=== PATIENT | female | born 1960 | race Caucasian/White ===

== ENCOUNTER 2024-02-01 09:28 | Outpatient (CLI) | payer OTHER, SELFPAY ==
--- OUTSIDE RECORDS SUMMARY | 2024-02-01 09:34 | XMS_ITS | Clinical Summary ---
Author Organization [facility] Address [address] [place] [address] Care Team Providers Care Communications Advisor Name Role Phone Varinder Mercedes MD Primary Care Provider [phone] Source Comments You are receiving this document as you are listed as the primary care provider,follow-up provider, or the patient has been referred to you for consultation.This is in compliance with the Medicare and[facility] EHR Incentive Program,which states Providers who transition their patient to another setting of careor provider of care or refers their patient to another provider of care shouldprovide summary care record for each transition of care or referral. Private Practice Allergies Active Allergy Reactions Criticality Noted Date Comments Erythromycin 01/14/2020 Azathioprine 01/14/2020 Medications Medication Sig Dispensed Refills Start Date End Date Status lisinopril (ZESTRIL) 40 MG tablet Take 1 Tablet (40 mg) by mouth daily. 11/20/2019 Active mupirocin (BACTROBAN) 2 % ointment APPLY TOPICALLY THREE TIMES DAILY NEEDED 11/20/2019 Active piroxicam (FELDENE) 20 MG capsule Take 1 Capsule (20 mg) by mouth daily. 11/21/2019 Active simvastatin (ZOCOR) 40 MG tablet Take 1 Tablet (40 mg) by mouth daily at bedtime. 11/20/2019 Active aspirin EC 81 MG enteric coated tablet Take 1 Tablet (81 mg) by mouth daily. Active inFLIXimab-dyyb (INFLECTRA) injection 600 mg IV every 6 weeks for 1 year 04/29/2021 Active gabapentin (NEURONTIN) 600 MG tablet TAKE ONE TABLET BY MOUTH AT BEDTIME 90 Tablet 3 01/19/2023 Active metFORMIN (GLUCOPHAGE) 1000 MG tabletIndications:U ncontrolled type 2 diabetes mellitus with hyperglycemia (HRC) Take 1.5 tabs AM, and 1 tab PM 360 Tablet 3 03/21/2023 Active insulin glargine (BASAGLAR KWIKPEN) injection 100 unit/mlIndications: Uncontrolled type 2 diabetes mellitus with hyperglycemia (HRC) Inject 50 Units subcutaneously every evening. 45 mL 3 03/21/2023 Active dulaglutide (TRULICITY) 3 MG/0.5ML injectin penIndications:Unco ntrolled type 2 diabetes mellitus with hyperglycemia (HRC) Inject 3 mg subcutaneously once a week. 6 mL 3 03/21/2023 4 Active insulin pen needle (B-D UF III MINI PEN NEEDLES) 31G X 5 MMIndications:Uncon trolled type 2 diabetes mellitus with hyperglycemia (HRC) USE 1 NEEDLE TWICE A DAY WITH PEN INJECTOR DEVICE. EACH NEEDLE IS SINGLE USE ONLY 200 Each 2 08/31/2023 Active hydroCHLOROthiazide (ORETIC) 25 MG tablet Take 1 Tablet (25 mg) by mouth daily. 07/29/2023 Active tirzepatide (MOUNJARO) 7.5 MG/0.5ML injection penIndications:Unco ntrolled type 2 diabetes mellitus with hyperglycemia (HRC) Inject 7.5 mg subcutaneously once a week. 2 mL 11 09/26/2023 Active Continuous Glucose Sensor (FREESTYLE ANDIE 3 SENSOR)Indications: Uncontrolled type 2 diabetes mellitus with hyperglycemia (HRC) Use 1 sensor every 14 days 7 Each 3 09/26/2023 Active Active Problems Problem Noted Date Diagnosed Date Obesity, unspecified obesity severity, unspecified obesity type 10/13/2020 Uncontrolled type 2 diabetes mellitus with hyper glycemia 10/13/2020 Resolved Problems Problem Noted Date Diagnosed Date Resolved Date Type 2 diabetes mellitus wit h diabetic chronic kidney disease 09/26/2023 Overview (09/26/2023): This problem was marked as resolved by a user in a SmartForm. Encounters Date Type Department Care Team Description 11/10/2023 1:30 PM CDT E-Visit [facility] [address] [place] [address] Ted Cerda MD Dx: Uncontrolled type 2 diabetes mellitus with hyperglycemia (HRC) (Primary Dx) from Last 3 Months Family History Medical History Relation Name Comments Diabetes Father Kidney Disorder Father Diabetes Mother Diabetes Maternal Grandfather Diabetes Paternal Grandmother Relation Name Status Comments Father Mother Maternal Grandfather Paternal Grandmother Social History Tobacco Use Types Packs/Day Years Used Date Smoking Tobacco: Former Cigarettes Q uit: 2014 Smokeless Tobacco: Never Alcohol Use Standard Drinks/Week Comments Not Currently 0 (1 standard drink = 0.6 oz pur e alcohol) Sex and Gender Information Value Date Recorded Sex Assigned at Not on file Gender Identity Not on file Sexual Orientation Not on file Last Filed Vital Signs Vital Sign Reading Time Taken Comments Blood Pressure 127/63 09/26/2023 1:56 PM CDT Pulse 82 09/26/2023 1:56 PM CDT Temperature - - Respiratory Rate - - Oxygen Saturation - - Inhaled Oxygen Concentration - - Weight 102.7 kg (226 lb 8 oz) 09/26/2023 1:56 PM CDT Height 180.3 cm (5' 11) 09/26/2023 1:56 PM CDT Body Mass Index 31.59 09/26/2023 1:56 PM CDT Plan of Treatment Upcoming Encounters Date Type Department Care Team (Late st Contact Info) Description 04/02/2024 10:45 AM OPTICAL MANAGER Appointment [facility] [address] [place] [address] Ted Cerda MD [address] [place] [phone] Health Maintenance Due Date Last Done Comments Cervical Cancer Screening Due 1961 Colon Cancer Screening Plan Due 1961 Diabetes: Eye Exam 1961 Diabetes: Foot Exam 1961 Hep C Screening (Preventive Services) 1961 MTM Targeted 1961 Mammogram 1961 HIV Screening (Preventive Services) 1977 Adult Preventive Visit 10/06/1979 Pneumococcal (2 - PCV) 04/28/2011 04/28/2010, 1999 COVID-19 Vaccine ( season) 2023 02/01/2023, 02/03/2022, 02/06/2021, Additional history exists Influenza (#1) 2023 02/01/2023, 01/23, 02/06/2021, Additional history exists Diabetes: HGBA1C 12/27/2023 09/26/2023, , 06/21/2022, Additional history exists Diabetes: Urine Microalbumin 03/21/2024 03/21/2023, 12/07/2021, 04/14/2020 Diabetes: Creatinine 09/25/2024 09/26/2023, 03/21/2023, 06/21/2022, Additional history exists DTaP/Tdap/Td (3 - Tdap) 10/12/2025 10/13/2015, 09/23 Diabetes: Lipid Panel 03/21/2028 03/21/2023 , 06/21/2022, 06/21/2022, Additional history exists RSV (1 - 1-dose 75+ series) 2036 Zoster/Shingles Completed 04/09/2020, 01/23, 10/06/2011 Cholesterol Discontinued 06/21/2022 HepA Aged Out No longer eligi ble based on patient's age to complete this topic HepB Aged Out No longer eligi ble based on patient's age to complete this topic Hib Aged Out No longer eligi ble based on patient's age to complete this topic IPV (Polio) Aged Out No longer eligi ble based on patient's age to complete this topic RSV Aged Out No longer eligi ble based on patient's age to complete this topic MCV4 Aged Out No longer eligi ble based on patient's age to complete this topic Procedures Procedure Name Priority Date/Time Associated Diagnosis Comments BASIC METABOLIC PANEL Routine 09/26/2023 2:29 PM CDT Uncontrolled type 2 diabetes mellitus with hyperglycemia (HRC) HGB A1C Routine 09/26/2023 1:39 PM CDT Uncontrolled type 2 diabetes mellitus with hyperglycemia (HRC) ALBUMIN/CREAT RATIO Routine 03/21/2023 2:48 PM OPTICAL MANAGER Uncontrolled type 2 diabetes mellitus with hyperglycemia (HRC) LDL CHOLESTEROL, DIRECT MEASURED Routine 03/21/2023 2:48 PM OPTICAL MANAGER Uncontrolled type 2 diabetes mellitus with hyperglycemia (HRC) LIPID PANEL & DIRECT LDL (IF NEEDED) Routine 06/21/2022 10:34 AM OPTICAL MANAGER Uncontrolled type 2 diabetes mellitus with hyperglycemia (HRC) from Last 3 Months or Most Recently Relevant to Health Maintenance Results * (ABNORMAL) BMP (09/26/2023 2:29 PM CDT) Sodium 140 136 - 145 mmol/L 09/26/2023 6:16 PM [facility] Potassium 4.6 3.5 - 5.1 mmol/L 09/26/2023 6:16 PM [facility] Chloride 105 98 - 109 mmol/L 09/26/2023 6:16 PM [facility] CO2 24 20 - 29 mmol/L 09/26/2023 6:16 PM [facility] Anion Gap 11 6 - 16 mmol/L 09/26/2023 6:16 PM [facility] Calcium 9.8 8.4 - 10.4 mg/dL 09/26/2023 6:16 PM [facility] BUN 19 7 - 26 mg/dL 09/26/2023 6:16 PM [facility] Creatinine 1.26(H) 0.55 - 1.02 mg/dL 09/26/2023 6:16 PM [facility] Glucose 147(H) 70 - 100 mg/dL 09/26/2023 6:16 PM [facility] Comment:The given reference range is for the fasting state. Non-fasting reference range for glucose is 70 - 180 mg/dL. GFR, Estimated 49(L) >60 mL/min/1.7 3m2 09/26/2023 6:16 PM [facility] Hours Fasting 12.0 8 - 12 Hours 09/26/2023 6:16 PM [facility] Blood Venipuncture / Unknown 09/26/2023 2:29 PM CDT 09/26/2023 2:34 PM CDT [facility] - 09/26/2023 6:16 PM CDT The National Kidney Disease Education Program suggests measuring Cystatin C in patients with eGFRcrea of 45 to 59 ml/min/1.73^2 who do not have other markers of kidney damage (i.e. elevated urine Albumin/Creatinine Ratio or a prior Cystatin C confirming the presence of chronic kidney disease). Ted Cerda MD LAB_1 Performing Organization Address [facility] Co de Phone Number [facility] [address] [place] [address] * (ABNORMAL) HgbA1c - Collect in Clinic (09/26/2023 1:39 PM CDT) [facility] Hemoglobin A1C (Rapid) 8.2(H) <=5.6 % 09/26/2023 1:58 PM CDT [facility] Performing Location Endo [facility] 09/26/2023 1:58 PM CDT [facility] Estimated Average Glucose (Calc) 189 < 117 mg/dL 09/26/2023 1:58 PM T [facility] Comment:Estimated average gl ucose (eAG) converts A1c into glucose units (mg/dL) and estimates average glucose over the past approximately 3 months. The eAG reference interval (<117 mg/dL) corresponds to an A1c of <5.7%. Blood Capillary / Unknown 09/26/2023 1:39 PM CDT 09/26/2023 1:40 PM CDT [facility] - 09/26/2023 1:58 PM CDT For patients not previously diagnosed with diabetes: 5.7-6.4%: Increased risk for diabetes 6.5% and greater: Diagnostic for diabetes For patients diagnosed with diabetes: <8.0%: Goal of therapy for ages 18-75 Clinicians may recommend a higher or lower goal for specific individuals. The test method used for this Hemoglobin A1c result can experience interference from elevated hemoglobin and other hemoglobin variants. In patients with results that do not correlate clinically, contact the lab for further direction. Ted Cerda MD LAB_1 Performing Organization Address [facility]/ZIP Co de Phone Number [facility] [address] [place] [address] * LDL Cholesterol, Direct Measured (03/21/2023 2:48 PM OPTICAL MANAGER) LDL, Direct 95 <=130 mg/dL 03/21/2023 5:20 PM [facility] Blood Venipuncture / Unknown 03/21/2023 2:48 PM OPTICAL MANAGER 03/21/2023 3:05 PM OPTICAL MANAGER Ted Cerda MD LAB_1 Performing Organization Address [facility] Co de Phone Number [facility] [address] [place] [address], [facility] [phone] * (ABNORMAL) Albumin/Creatinine Ratio,Random Urine (03/21/2023 2:48 PM OPTICAL MANAGER) Albumin/Creati nine Ratio, Urine, Random 100(H) <30 mg/g 03/21/2023 5:27 PM [facility] Albumin, Urine, Random 298.3 mg/L 03/21/2023 5:27 PM [facility] Creatinine, Urine, Random 297 >20 mg/dL mg/dL 03/21/2023 5:27 PM [facility] Urine Non-blood Collection / Unknown 03/21/2023 2:48 PM OPTICAL MANAGER 03/21/2023 3:05 PM OPTICAL MANAGER Ted Cerda MD LAB_1 Performing Organization Address [facility]/ZIP Co de Phone Number [facility] [address] [place] [address], [facility] [phone] * (ABNORMAL) Lipid Panel and Direct LDL (if needed) (06/21/2022 10:34 AM OPTICAL MANAGER) Cholesterol 157 0 - 199 mg/dL 06/21/2022 5:17 PM [facility] Triglyceride 152(H) <=149 mg/dL 06/21/2022 5:17 PM [facility] HDL Cholesterol 49 >=40 mg/dL 3 5:17 PM [facility] LDL, Calculated 78 <130 mg/dL 3 5:17 PM [facility] Non HDL Chol, Calculated 108 <=159 mg/dL 06/21/2022 5:17 PM [facility] Cholesterol/HDL Ratio 3.2 06/21/2022 5:17 PM [facility] Blood Venipuncture / Unknown 06/21/2022 10:34 AM OPTICAL MANAGER 06/21/2022 10:34 AM [facility] Ted Cerda MD LAB_1 [facility] [address] [place] [address], [facility] [phone] from Last 3 Months or Most Recently Relevant to Health Maintenance Care Teams Communications Advisor Relationship Specialty Start Date End Date Varinder Mercedes MD [address] [place] [address] PCP - General 09/26/23
--- OUTSIDE RECORDS SUMMARY | 2024-02-01 09:34 | XMS_ITS | Clinical Summary ---
Author Organization [employer] [facility] Address [place], [place] [address] Care Team Providers Care Physical Therapist Technician Name Role Phone Varinder Mercedes MD Primary Care Provider Allergies Active Allergy Reactions Criticality Noted Date Comments Amoxicillin-Pot Clavulanate Other - Describe In Comment Field 07/30/2006 intolerance--GI upset Erythromycin Other - Describe In Comment Field 07/30/2006 intolerance--GI upset Nitroimidazoles Other - Describe In Comment Field 07/30/2006 neuropathy Azathioprine Rash 07/30/2006 Sulindac Other - Describe In Comment Field 07/30/2006 intolerance--GI upset Medications Medication Sig Dispensed Refills Start Date End Date Status ASPIRIN 81 MG TAB take 1 tablet (81mg) by oral route once daily 0 Active PIROXICAM 20 MG CAP take 1 capsule (20 mg) by oral route once daily*NEEDS APPOINTMENT 15 0 01/08/2008 Active SIMVASTATIN 40 MG TAB take 1 tablet (40 mg) by oral route once daily in the evening 15 0- needs appt 01/08/2008 Active METFORMIN 1,000 MG TAB take 1 tablet (1,000mg) by oral route 2 times per day with morning and evening meals 30 0- needs appt 01/08/2008 Active lisinopril (PRINIVIL; ZESTRIL) 10 mg tabletIndications :Unspecified essential hypertension Take 2 tablets by mouth once daily. 31 tablet 11 05/31/2013 Active naproxen sodium (ALEVE) 220 mg cap Take 220 mg by mouth before breakfast. 0 05/31/2013 Active dulaglutide (TRULICITY) 0.75 mg/0.5 mL injection Inject 0.75 mg subcutaneous once weekly. 0 05/08/2020 Active Basaglar KwikPen U-100 Insulin 100 unit/mL (3 mL) pen INJECT 45 UNITS SUBCUTANEOUSLY EVERY EVENING. 06/23/2021 Active Trulicity 3 mg/0.5 mL subcutaneous pen INJECT 3 MG SUBCUTANEOUSLY ONCE A WEEK* 10/14/2022 Active hydroCHLOROthiazi de 12.5 mg tablet TAKE ONE TABLET BY MOUTH ONE TIME DAILY* 10/14/2022 Active hyoscyamine sublingual (LEVSIN SL) 0.125 mg sublIndications:C rohn's disease of both small and large intestine without complication (HC),Diarrhea, unspecified type,Periumbilica l abdominal pain Place 1-2 Tablets (0.125-0.25 mg) under the tongue every 4 hours if needed for Colic. 60 Tablet 11 11/10/2022 Active Additional Information Patient not taking.Reported on 11/16/2023 inFLIXimab-dyyb (Inflectra) 100 mg injectionIndicati ons:Crohn's disease of both small and large intestine without complication (HC) 600 mg IV every 6 weeks 60 mL 9 11/19/2022 Active gabapentin (NEURONTIN) 600 mg tablet 600 mg. Active tirzepatide (Mounjaro) 7.5 mg/0.5 mL pen Inject 7.5 mg subcutaneous. 09/26/2023 Active Active Problems Problem Noted Date Diagnosed Date Family history of malignant neoplasm of gastrointestinal tract 01/05/2012 Arthralgia 05/25/2010 Diarrhea 05/25/2010 Mixed hyperlipidemia 10/19/2006 Crohn's disease of both smal l and large intestine without complication 10/19/2006 Overview (10/11/2017): Colonoscopy 05/2012 two small areas of inflammation, repeat in 5 years Colonoscopy 09/2017 normal, repeat in 3 years Unspecified essential hypertension 10/19/2006 DIABETES 03/21/2002 Encounters Date Type Department Care Team Description 01/13/2024 11:00 AM CDT Orders Only [facility] [address] [place] [address] [place], [place] [facility] 01/13/2024 Travel 12/12/2023 Medical Messaging [facility] [address] [place] [address] Rayshawn Parish MD schedule the next appointments 11/23/2023 9:00 AM CDT Orders Only [facility] [address] [place] [address] Lab, [place] [facility] 11/23/2023 Telephone [facility] [address] [place] [address] Rayshawn Parish MD Questions (frustration) 11/23/2023 Travel 11/16/2023 1:30 PM CDT Office Visit [facility] [address] [place] [address] [address] Rayshawn Parish MD Follow Up (Inflectra-some good days and some not so good - same concerns since switching from Remicade to Inflectra) 11/16/2023 Travel from Last 3 Months Immunizations Name Administration Dates Next Due AMB Influenza, IIV3 (Age >=3 years)(Flu Clinic O nly) 02/24/2010 AMB Influenza, IIV4 PF (=>6 mos Flulaval,Fluzone Fluarix)(Flu Clinic Only) 02/05/2014 Influenza, IIV3 (Age >=3 years) 02/21/2007,02/25 Pneumococcal Poly,23-Valent (Pneumovax) 04/25/19 00 Tdap 09/23/2005 Family History Medical History Relation Name Comments Diabetes Father Hyperlipidemia Father Hypertension Father Cancer Maternal Grandfather lung Diabetes Mother Heart Disease Mother HI at age 55 Relation Name Status Comments Father Maternal Grandfather Mother Social History Tobacco Use Types Packs/Day Years Used Date Smoking Tobacco: Former Cigarettes Q uit: 06/08/2013 Smokeless Tobacco: Never Tobacco Cessation:Counseling Given: No Comments:has plan to try to quit Alcohol Use Standard Drinks/Week Comments Yes 1.7 (1 standard drink = 0.6 oz p ure alcohol) Social Connections Answer Date Recorded Frequency of Communication with Friends and Fami ly Not on file 04/15/2021 Financial Resource Strain Answer Date R ecorded Difficulty of Paying Living Expenses Not on file 04/15/2021 Difficulty of Paying Living Expenses Not on file 04/15/2021 Sex and Gender Information Value Date Recorded Sex Assigned at Not on file Gender Identity Not on file Sexual Orientation Not on file Obstetrics History Last Filed Vital Signs Vital Sign Reading Time Taken Comments Blood Pressure 169/77 11/16/2023 1:39 PM CDT Pulse 81 11/16/2023 1:39 PM CDT Temperature 37 ??C (98.6 ??F) 06/09/2016 3:18 PM DIRECTOR CHEMISTRY Respiratory Rate - - Oxygen Saturation 97% 11/16/2023 1:39 PM CDT Inhaled Oxygen Concentration - - Weight 98.5 kg (217 lb 3.2 oz) 11/16/2023 1:39 P M CDT Height 188 cm (6' 2.02) 05/11/2017 2:05 PM DIRECTOR CHEMISTRY Body Mass Index 27.87 05/11/2017 2:05 PM DIRECTOR CHEMISTRY Plan of Treatment Health Maintenance Due Date Last Done Comments Depression screening for age 12+ 1973 HIV for age 15-65 1976 Hepatitis C screening for ag e 18-79 10/06/1979 Zoster (shingles) series for age 50+ (1 of 2) 1980 Pneumococcal series for age 6-64 (2 of 2 - PCV) 04/25/2000 04/25/1999 Mammogram for age 45-75 2006 Pap test for age 21-65 11/18/2009 7, 11/18/2006, 05/08/2004 Lipids for age 45-75 02/22/2012 02/21/2007, 11/11/2006, 02/25/2006, Additional history exists Tetanus booster 09/24/2015 09/23/2005 BMI (ht and wt on same day) for age 18+ 05/11/2018 05/11/2017, 06/09/2016 Colonoscopy through age 75 10/07/202210/07, 10/07/2017, 06/02/2012, Additional history exists COVID-19 vaccine series ( season) 2023 02/01/2023, 02/03/2022, 02/06/2021, Additional history exists Influenza for age 50-64 12/25/2023 02/06/20 14, 02/24/2010, 02/21/2007, Additional history exists Tdap Completed 09/23/2005 Procedures Procedure Name Priority Date/Time Associated Diagnosis Comments CREATININE Routine 01/13/2024 11:02 AM CDT Crohn's disease of both small and large intestine without complication (HC) Periumbilical abdominal pain Diarrhea, unspecified type SERIAL MONITORING Routine 11/23/2023 9:0 1 AM CDT Crohn's disease of both small and large intestine without complication (HC) Diarrhea, unspecified type Periumbilical abdominal pain CBC WITH AUTO DIFFERENTIAL Routine 11/23/2023 9:01 AM CDT Crohn's disease of both small and large intestine without complication (HC) Diarrhea, unspecified type Periumbilical abdominal pain INFLIXIMAB AND ANTI-INFLIXIMAB GLENNA BLD Routine 11/23/2023 9:01 AM CDT Crohn's disease of both small and large intestine without complication (HC) Diarrhea, unspecified type Periumbilical abdominal pain C-REACTIVE PROTEIN Routine 11/23/2023 9: 01 AM CDT Crohn's disease of both small and large intestine without complication (HC) Diarrhea, unspecified type Periumbilical abdominal pain COMP METABOLIC PANEL Routine 11/23/2023 9:01 AM CDT Crohn's disease of both small and large intestine without complication (HC) Diarrhea, unspecified type Periumbilical abdominal pain CBC WITH AUTO DIFFERENTIAL Routine 11/23/2023 9:01 AM CDT Crohn's disease of both small and large intestine without complication (HC) Diarrhea, unspecified type Periumbilical abdominal pain COLONOSCOPY 10/07/2017 7:51 AM CDT LIPID PANEL Routine 02/21/2007 8:46 AM CDT Hyperlipidemia Mixed [facility] [employer] [facility] [facility] THIN PREP PAP SCREEN IMAGED Routine 11/18/2006 3:59 PM CDT Screening Malignant Neoplasms Cervix from Last 3 Months or Most Recently Relevant to Health Maintenance Results * (ABNORMAL) CREATININE (01/13/2024 11:02 AM CDT) CREATININE 1.56(H) 0.50 - 1.05 mg/dL [facility] EGFR 37(L) > OR = 60 mL/min/1.73 m2 [facility] Blood BLOOD SPECIMEN / Unknown 01/13/2024 11:02 AM CDT 01/13/2024 11:02 AM CDT Rayshawn Parish MD CHEMISTRY Performing Organization Address City/[facility]/ZIP Co de Phone Number [facility] [address] [place] [address], [facility] [address] [place] [address] * SERIAL MONITORING (11/23/2023 9:01 AM CDT) Blood BLOOD SPECIMEN / Unknown Venipuncture / Unknown 11/23/2023 9:01 AM CDT 11/23/2023 9:02 AM CDT Narrative [facility] ([facility]) - 12/01/2023 4:08 AM CDT Performed at: ??[address] [place] [address] ??[id number] In File Operator: Dino Perrin [facility], Phone: ??[phone] Rayshawn Parish MD SEND OUTS Performing Organization Address City/[facility]/ZIP Co de Phone Number [facility] ([facility]) [address] [place] [address] * INFLIXIMAB AND ANTI-INFLIXIMAB GLENNA BLD (11/23/2023 9:01 AM CDT) Infliximab Lvl 11 ug/mL 12/01/2023 4:[address] [facility] ([facility]) Comment: Quantitation Limit: <0.4 ug/mL Results of 0.4 or higher indicate detection of infliximab. Comments: ? - The optimal drug concentration depends upon ? patient-specific factors including the disease and ? desired therapeutic endpoint. ? - Maintenance trough concentrations >=5 may be ? associated with higher remission rates.(1) ? - In severe CD, higher trough levels (>10) may ? be necessary to achieve fistula healing.(2) ? - In rheumatoid arthritis, EULAR responders had higher ? median trough levels (3.6) than non-responders ? (0.5).(3) ? - This assay measures the antibody-unbound (free) ? fraction of infliximab when serum anti-infliximab ? antibodies are present. Infliximab Ab <22 ng/mL 12/01/2023 4:08 AM CDT [facility] ([facility]) Comment: ?Interpretation: ?The above result is an UNDETECTED Antibody titer. ?Quantitation Limit: <22 ng/mL. ?Results of 22 or higher indicate detection of anti- ?infliximab antibodies. ?22 - 200 ng/mL: LOW titer ?201 - 1,000 ng/mL: INTERMEDIATE titer ?1,001 or greater ng/mL: HIGH titer Comments: ? - Anti-drug antibody levels should be interpreted in ? the context of the concomitant free drug trough ? concentration. ? - Low titer anti-drug antibodies may be transient ? while high titers are likely to be more ? consequential.(4-6) ? - Some immunogenicity is reversible. Elimination of ? intermediate titer (and even some high titer) ? anti-infliximab antibodies has been achieved with ? dose escalation and/or methotrexate or 6-MP.(7) ? - Maintenance of drug levels greater than 3 ug/mL may ? reduce the risk of developing anti-drug ? antibodies.(8) ? - This anti-infliximab antibody assay is drug tolerant, ? and all positive results are verified for anti-drug ? specificity by a confirmatory test. References: 1. Andrews Moreno, et al. AGA Review on TDM in IBD. ?? Gastroenterol 2017;153:835-857. 2. Stella A, et al. Gastroenterol 2016;150(4):R595-L819. 3. Wolbink GJ, et al. Radha Rheum Dis 2005;64:704-707. 4. Devaughn Rabago, et al. Inflamm Bowel Dis 2012;18(12): ?? 0830-5176. 5. Andrews Moreno, et al. Am J Gastroenterol 2013;108: ?? 962-971. 6. Yanai H, et al. Clin Gastroenterol Hepatol 2015;13(3): ?? 522-530. 7. Davina A, et al. Gastroenterol 2019;156(6):S-617. 8. Cheikh JF, et al. Gastroenterol 2016;150(4):S144. 9. Mann Bocanegra, et al. AAPS Journal 2016 DOI:10.1208/ ?? [id number]. These tests were developed and their performance characteristics determined by [facility]. ??They have not been cleared or approved by the Food and Drug Administration. However, these electrochemiluminescence immunoassay (ECLIA) measurements of infliximab and anti-infliximab antibody (constituting DoseASSURE IFX) have been developed and validated in accordance with CLIA (Clinical Laboratory Improvement Amendments) and the FDA Guidance document, Assay Development and Validation for Immunogenicity Testing of Therapeutic Protein Products (2019). Results of a peer-reviewed methods comparison / validation of these assays have been published.(9) Blood BLOOD SPECIMEN / Unknown Venipuncture / Unknown 11/23/2023 9:01 AM CDT 11/23/2023 9:02 AM CDT Narrative [facility] ([facility]) - 12/01/2023 4:08 AM CDT Performed at: ??01 - [employer] [address] [place] [address] ??[id number] In File Operator: Benny Vargas MD, Phone: ??[phone] Rayshawn Parish MD SEND OUTS [facility] ([facility]) [address] [place] [address], * (ABNORMAL) CBC WITH AUTO DIFFERENTIAL (11/23/2023 9:01 AM CDT) WHITE BLOOD COUNT 10.7 4.5 - 11.0 thou/cu mm 11/23/2023 9:06 AM CDT [facility] RED BLOOD COUNT 4.16 4.00 - 5.20 mil/cu mm 11/23/2023 9:06 AM CDT [facility] HEMOGLOBIN 11.6(L) 12.0 - 16.0 g/dL 11/23/2023 9:06 AM CDT [facility] HEMATOCRIT 33.9 33.0 - 51.0 % 11/23/2023 9:06 AM CDT [facility] MCV 82 80 - 100 fL 11/23/2023 9:06 AM CDT [facility] MCH 27.9 26.0 - 34.0 pg 11/23/2023 9:06 AM CDT [facility] MCHC 34.2 32.0 - 36.0 g/dL 11/23/2023 9:06 AM CDT [facility] RDW 13.5 11.5 - 15.5 % 11/23/2023 9:06 AM CDT [facility] PLATELET COUNT 209 140 - 440 thou/cu mm 11/23/2023 9:06 AM CDT [facility] MPV 10.9 6.5 - 11.0 fL 11/23/2023 9:06 AM CDT [facility] % NEUT 44.0 % 11/23/2023 9:06 AM CDT [facility] % LYMPH 43.8 % 11/23/2023 9:06 AM CDT [facility] % MONO 10.1 % 11/23/2023 9:06 AM CDT [facility] % EOS 1.7 % 11/23/2023 9:06 AM CDT [facility] % BASO 0.4 % 11/23/2023 9:06 AM CDT [facility] ABSOLUTE NEUTROPHILS 4.7 1.7 - 7.0 thou/cu mm 11/23/2023 9:06 AM CDT [facility] ABSOLUTE LYMPHOCYTES 4.7(H) 0.9 - 2.9 thou/cu mm 11/23/2023 9:06 AM CDT [facility] ABSOLUTE MONOCYTES 1.1(H) <0.9 thou/cu mm 11/23/2023 9:06 AM CDT [facility] ABSOLUTE EOSINOPHILS 0.2 <0.5 thou/cu mm 11/23/2023 9:06 AM CDT [facility] ABSOLUTE BASOPHILS 0.0 <0.3 thou/cu mm 11/23/2023 9:06 AM CDT [facility] Blood BLOOD SPECIMEN / Unknown Venipuncture / Unknown 11/23/2023 9:01 AM CDT 11/23/2023 9:02 AM CDT Rayshawn Parish MD HEMATOLOGY [facility] [address] [place] [address], [place] [phone] * C-REACTIVE PROTEIN (11/23/2023 9:01 AM CDT) C-REACTIVE PROTEIN <0.3 <0.5 mg/dL 11/23/2023 6:42 PM CDT [facility] Blood BLOOD SPECIMEN / Unknown Venipuncture / Unknown 11/23/2023 9:01 AM CDT 11/23/2023 9:02 AM CDT Rasyhawn Parish MD [facility]STRY [facility] [address] [place] [address], [place] * (ABNORMAL) COMP METABOLIC PANEL (11/23/2023 9:01 AM CDT) SODIUM 130(L) 136 - 145 mmol/L 11/23/2023 6:40 PM CDT [facility] POTASSIUM 5.1 3.5 - 5.1 mmol/L 11/23/2023 6:40 PM T [facility] CHLORIDE 94(L) 98 - 107 mmol/L 11/23/2023 6:40 PM T [facility] CO2,TOTAL 21(L) 22 - 29 mmol/L 11/23/2023 6:40 PM T [facility] ANION GAP 15 5 - 18 11/23/2023 6:40 PM T [facility] GLUCOSE 94 70 - 99 mg/dL 11/23/2023 6:40 PM T [facility] CALCIUM 9.6 8.8 - 10.2 mg/dL 11/23/2023 6:40 PM [facility] BUN 22 8 - 23 mg/dL 11/23/2023 6:40 PM [facility] CREATININE 1.55(H) 0.50 - 0.90 mg/dL 11/23/2023 6:40 PM [facility] BUN/CREAT RATIO 14 10 - 20 6:40 PM [facility] eGFR 38(L) >90 mL/min/1.7 3m2 11/23/2023 6:40 PM T [facility] Comment:As of 2021, eG FR is calculated by the CKD-EPI creatinine equation without race adjustment. ??eGFR can be influenced by muscle mass, exercise, and diet. ??The reported eGFR is an estimation only and is only applicable if the renal function is stable. ALBUMIN 4.3 4.0 - 4.9 g/dL 11/23/2023 6:40 PM CDT [facility] PROTEIN,TOTAL 7.6 6.0 - 8.0 g/dL 11/23/2023 6:40 PM T [facility] BILIRUBIN,TOTAL 0.7 0.0 - 1.2 mg/dL 11/23/2023 6:40 PM CDT [facility] ALK PHOSPHATASE 39 35 - 104 IU/L 11/23/2023 6:40 PM CDT [facility] ALT (SGPT) 26 10 - 35 IU/L 11/23/2023 6:40 PM CDT [facility] AST (SGOT) 43(H) 10 - 35 IU/L 11/23/2023 6:40 PM CDT [facility] Blood BLOOD SPECIMEN / Unknown Venipuncture / Unknown 11/23/2023 9:01 AM CDT 11/23/2023 9:02 AM CDT Rayshawn Parish MD CHEMISTRY [facility] [address] [place] [address], [place] * COLONOSCOPY (10/07/2017 7:51 AM CDT) 10/07/2017 7:51 AM CDT Narrative Transcriptions Rayshawn Parish MD - 10/07/2017 9:25 AM CDT Patient Name: Nayana Thapaelgren Procedure Date: 10/07/2017 Gender: Female Date of : 1960 Admit Type: Outpatient Procedure: Colonoscopy Proceduralist: Rayshawn Parish MD , Terri Cabrera (Nurse) Indications/Pre-Op Diagnosis: High risk colon cancer surveillance: Crohn's small and large intestine, Last colonoscopy: May 2012 Medications: Fentanyl 100 micrograms IV, Midazolam 4 mgIV, The level of sedation administered wasmoderate Procedure Description: The patient had risks, benefits and alternatives explained to andgave informed consent. The patient had a stable cardiopulmonary status and judged an adequate candidate for conscious sedation. The colonoscope was passed through the anus and advanced to 15 cminto the ileum. The colonoscopy was performed without difficulty. Thepatient tolerated the procedure well. The quality of the bowel preparationwas good. The terminal ileum, ileocecal valve, appendiceal orifice, and rectum were photographed. Complications: No immediate complications. Estimated Blood Loss & Specimen: Estimated blood loss: none. Specimen collected - Yes and sent to Laboratory Findings: The perianal and digital rectal examinations were normal. The terminal ileum appeared normal. The entire examined colon appeared normal on direct and retroflexion views. Background biopsies were taken for histology with a cold forceps from the ascending colon, transverse colon, descending colon andrectosigmoid colon. These biopsy specimens from the ascending colon, transverse colon, descending colon and rectosigmoid colon were sent toPathology. Impressions/Post-Op Diagnosis: - The examined portion of the ileum was normal. - The entire examined colon is normal on direct and retroflexionviews. - Background biopsies were taken from the ascending colon, transverse colon, descending colon and rectosigmoid colon. Recommendation: - Patient has a contact number available for emergencies. The signsand symptoms of potential delayed complications were discussed with the patient. Return to normal activities tomorrow. Written discharge instructions were provided to the patient. - Resume previous diet. - Continue present medications. - Await pathology results. - Repeat colonoscopy in 3 years for surveillance. Moderate Sedation: Moderate (conscious) sedation was administered by the endoscopy nurse and supervised by the endoscopist. The following parameters were monitored: oxygen saturation, heart rate, respiratory rate, blood pressure, adequacy of pulmonary ventilation and reponse to care. [facility] flow[facility] and nursing notes for moderate sedation details. Total physician intraservice time was 25 minutes. Rayshawn Parish MD 10/07/2017 9:25:26 AM This report has been signed electronically. Note Initiated On: 10/07/2017 7:51 AM Procedure Code(s): --- Professional --- 67503, Colonoscopy, flexible; with biopsy, single or multiple Diagnosis Code(s): --- Professional --- K50.80, Crohn's disease of both small andlarge intestine without complications CPT copyright 2017 [employer]. All rights reserved. The codes documented in this report are preliminary and upon engineer specialist reviewmay be revised to meet current compliance requirements. Scope In: 8:50:22 AM Scope Withdrawal Time 0 hours 17 minutes 7 seconds Scope Out: 9:12:05 AM Rayshawn Parish MD PROCEDURE ORD * (ABNORMAL) LIPID PANEL (02/21/2007 8:46 AM CDT) CHOLESTEROL,TOTAL 140 110 - 199 mg/dL [facility] TRIGLYCERIDES 167(H) <150 mg/dL [facility] HDL CHOLESTEROL 40(L) >40 mg/dL [facility] CHOL/HDL RATIO 3.50 <4.51 [facility] LDL CHOLESTEROL 67 <131 mg/dL [facility] PATIENT STATUS Fasting [facility] Blood specimen (specimen) BLOOD SPECIMEN / Unknown 02/21/2007 8:46 AM CDT 02/21/2007 8:40 AM CDT Omi Meléndez MD CHEMISTRY Performing Organization Address City/State/[facility] Co de Phone Number [facility] [address] [place] [address] * [facility] THIN PREP PAP SCREEN IMAGED (11/18/2006 3:59 PM CDT) CYTOLOGY ??CYTOPATHOLOGY REPORT ??[facility] ?? Status: Final Report ? [id number] ?? CLINICAL INFORMATION ?LMP ? : 7/14/07 ?Previous Pap Date ? : 05/08/04 ?Previous PAP Dx ? : Negative for intraepithelial lesion or ?malignancy. ?Previous Igo/bx date : None ?Previous Colposcopy/Bx: None ?Hormone Usage ? : None ?Menstrual Status ?: Regular Periods ?Appearance of Cervix ??: Not given ?Igo/Bx done today ?: No ?HPV Request ? : Reflex HPV test if PAP Dx ASCUS ?? SPECIMEN SOURCE ?: Cervical/vaginal ThinPrep Vial, screening ?? SPECIMEN ADEQUACY ?: Satisfactory for evaluation No endocervical ?component seen. ?? ANCILLARY TESTING ?: HPV testing ordered. See Separate Report. ? INTERPRETATION/RES ULT: ?Atypical squamous cells of undetermined significance. ? Cytology 1st Screener : ??tll ?? Signed by: ? Luna Horton M.D. ?? This specimen was screened by the FDA approved ThinPrep Imaging ?? System and manually reviewed. ?? NOTE: The Pap test is a screening technique, not a diagnostic ?? procedure. It is used primarily to screen for squamous cancers and ?? precursor lesions. Published studies have shown that it is subject to ?? both false negative and false positive results. The pap test should ?? not be used as the sole means to diagnose or exclude pre-malignant and ?? malignant lesions. ?? COLLECTED: 11/18/06 ?? ACCESSIONED: 11/18/06 ?? SIGNED: 11/24/06 [facility] Cervical (Cervical) 11/18/2006 3:59 PM CDT 11/18/2006 3:56 PM CDT Omi Meléndez MD PATHOLOGY/CYTOLO [facility]Y [facility] [place]NAL ZIP [address] [address] from Last 3 Months or Most Recently Relevant to Health Maintenance Care Teams Physical Therapist Technician Relationship Specialty Start Date End Date Varinder Mercedes MD PCP - General 02/17/09
--- OUTSIDE RECORDS SUMMARY | 2024-02-01 09:34 | XMS_ITS | Encounter Summary ---
Author Organization [employer] Address [address] [place] [address] Care Team Providers Care Forestry Tree Pruner Name Role Phone Varinder Mercedes MD Primary Care Provider +1- [phone] Reason for Visit * Reason Comments Medication Questions Entered automatical ly based on patient selection in [employer]. Encounter Details Date Type Department Care Team (Late st Contact Info) Description 11/10/2023 1:30 PM CDT E-Visit [facility] [address] [place] [address] Low Peña MD [address] [place] [address] Dx: Uncontrolled type 2 diabetes mellitus with hyperglycemia (HRC) (Primary Dx) Social History Tobacco Use Types Packs/Day Years Used Date Smoking Tobacco: Former Cigarettes Q uit: 2015 Smokeless Tobacco: Never Alcohol Use Standard Drinks/Week Comments Not Currently 0 (1 standard drink = 0.6 oz pur e alcohol) Sex and Gender Information Value Date Recorded Sex Assigned at Not on file Gender Identity Not on file Sexual Orientation Not on file documented as of this encounter Progress Notes * Low Peña MD - 11/23/2023 12:42 PM CDTAddended by: LOW PEÑA on: 11/23/2023 12:42 PM Modules accepted: Level of Service documented in this encounter Nursing Notes * Low Peña MD - 11/23/2023 12:38 PM CDT CGM physician interpretation Avg 105 TIR 93% Below 70 was 4% Well controlled BG with lows overnight. Plan - reduce dose to 30-35 units Further reduction based on the BG Marked improvement of glycemic control. Time 6 min Low Peña MD Endocrinology Service * Ericka Nielson RN - 11/22/2023 9:28 AM CDT Images from the original note were not included. * Armand Bautista RN - 11/10/2023 2:51 PM CDT Images from the original note were not included. Please advise on patient message. documented in this encounter Plan of Treatment Upcoming Encounters Date Type Department Care Team (Late st Contact Info) Description 04/02/2024 10:45 AM INTERNET APPLICATION DEVELOPER Appointment [facility] [address] [place] [address] Low Peña MD [address] [place] [address] documented as of this encounter Visit Diagnoses Diagnosis Uncontrolled type 2 diabetes mellitus with hyperglycemia (HRC)- Primary documented in this encounter Care Teams Forestry Tree Pruner Relationship Specialty Start Date End Date Varinder Mercedes MD [address] [place] [address] PCP - General 09/26/23 documented as of this encounter
== END 2024-02-01 09:29 | disposition home or self-care (01) ==
LOC: NFLDREF 09:29
PROVIDERS: PCP Internal Medicine; Visit Provider Internal Medicine
DX: N18.9 Chronic kidney disease, unspecified (principal)
CPT/HCPCS: 80048; 87086

== ENCOUNTER 2024-02-07 15:40 | Outpatient (CLI) | payer OTHER, SELFPAY ==
--- OUTSIDE RECORDS SUMMARY | 2024-02-08 10:01 | XMS_ITS | Clinical Summary ---
Author Organization [employer] Address [place], [place] [address] Care Team Providers Care Programmer Analyst Consultant Name Role Phone Varinder Mercedes MD Primary [...] Description 01/13/2024 11:00 AM CDT Orders Only [facility] [address] [place] [address] [place] [facility] 01/13/2024 Travel 12/12/2023 Medical Messaging [facility] [address] [place] [address] Rayshawn Parish MD schedule the next appointments 11/23/2023 9:00 AM CDT Orders Only [facility] [address] [place] [address] [place] [place] [facility] 11/23/2023 Telephone [facility] [address] [place] [address] Rayshawn Parish MD Questions (frustration) 11/23/2023 Travel 11/16/2023 1:30 PM CDT Office Visit [facility] [address] [place] [address] Rasyhawn Parish MD Follow Up (Inflectra-some good days [...] Grandfather lung Diabetes Mother Heart Disease Mother ND at age 55 Relation Name Status Comments [...] 37 ??C (98.6 ??F) 06/09/2016 3:18 PM PROJ MGR Respiratory Rate - - Oxygen Saturation 97% 11/16/2023 1:39 PM CDT Inhaled Oxygen Concentration - - Weight 98.5 kg (217 lb 3.2 oz) 11/16/2023 1:39 P M CDT Height 188 cm (6' 2.02) 05/11/2017 2:05 PM PROJ MGR Body Mass Index 27.87 05/11/2017 2:05 PM PROJ MGR Plan of Treatment Health Maintenance Due Date [...] Routine 02/21/2007 8:46 AM CDT Hyperlipidemia Mixed SAIL FINISHER HAND THIN PREP PAP SCREEN IMAGED Routine 11/18/2006 [...] Rayshawn Parish MD CHEMISTRY Performing Organization Address City/[facility]/ZIP Co de Phone Number [employer] [facility] [address] [place] [address], [facility] [address] [place] [address] * SERIAL MONITORING (11/23/2023 9:01 AM CDT) Blood BLOOD SPECIMEN / Unknown Venipuncture / Unknown 11/23/2023 9:01 AM CDT 11/23/2023 9:02 AM CDT Narrative [facility] ([facility]) - 12/01/2023 4:08 AM CDT Performed at: ??[address] [place] [address] ??[id number] Investor Relations Director: Dino Perrin [facility], Phone: ??[phone] Rayshawn Parish MD SEND OUTS Performing Organization Address City/[facility]/ZIP Co de Phone Number [facility] ([facility]) [address] [place] [address] * INFLIXIMAB AND ANTI-INFLIXIMAB GLENNA BLD (11/23/2023 9:01 AM CDT) Infliximab Lvl 11 ug/mL 12/01/2023 4:[address] [facility] ([facility]) Comment: Quantitation Limit: [...] <22 ng/mL 12/01/2023 4:08 AM CDT [facility] ([facility]) Comment: [...] 2017;153:835-857. 2. Stella A, et al. Gastroenterol 2016;150(4):Q121-C416. 3. Wolbink GJ, et al. Radha Rheum Dis 2005;64:704-707. 4. Devaughn Rabago, et al. Inflamm Bowel Dis 2012;18(12): ?? 3014-0341. 5. Andrews Moreno, et al. Am J Gastroenterol 2013;108: ?? 962-971. 6. Yanai H, et al. Clin Gastroenterol Hepatol 2015;13(3): ?? 522-530. 7. Davina A, et al. Gastroenterol 2019;156(6):S-617. 8. Cheikh JF, et al. Gastroenterol 2016;150(4):S144. 9. Mann Bocanegra, et al. AAPS Journal 2016 DOI:10.1208/ ?? [id number]. These tests were developed and their performance characteristics determined by [employer]. ??They have not been cleared or approved [...] AM CDT 11/23/2023 9:02 AM CDT Narrative [facility] ([facility] - 12/01/2023 4:08 AM CDT Performed at: ??01 - [facility] [address] [place] [address] ??[id number] Investor Relations Director: Benny Vargas MD, Phone: ??[phone] Rayshawn Parish MD SEND OUTS [facility] ([facility]) [address] [place] [address], * (ABNORMAL) CBC WITH AUTO DIFFERENTIAL (11/23/2023 9:01 AM CDT) WHITE BLOOD COUNT 10.7 4.5 - 11.0 thou/cu mm 11/23/2023 9:06 AM CDT [facility] RED BLOOD COUNT 4.16 4.00 - 5.20 mil/cu mm 11/23/2023 9:06 AM CDT [facility] HEMOGLOBIN 11.6(L) 12.0 - 16.0 g/dL 11/23/2023 9:06 AM CDT [facility] HEMATOCRIT 33.9 33.0 - 51.0 % 11/23/2023 9:06 AM CDT [facility] MCV 82 80 - 100 fL 11/23/2023 9:06 AM CDT [facility] MCH 27.9 26.0 - 34.0 pg 11/23/2023 9:06 AM CDT [facility] MCHC 34.2 32.0 - 36.0 g/dL 11/23/2023 9:06 AM CDT [facility] RDW 13.5 11.5 - 15.5 % 11/23/2023 9:06 AM CDT [facility] PLATELET COUNT 209 140 - 440 thou/cu mm 11/23/2023 9:06 AM CDT [facility] MPV 10.9 6.5 - 11.0 fL 11/23/2023 9:06 AM CDT [facility] % NEUT 44.0 % 11/23/2023 9:06 AM CDT [facility] % LYMPH 43.8 % 11/23/2023 9:06 AM CDT [facility] % MONO 10.1 % 11/23/2023 9:06 AM CDT [facility] % EOS 1.7 % 11/23/2023 9:06 AM CDT [facility] % BASO 0.4 % 11/23/2023 9:06 AM CDT [facility] ABSOLUTE NEUTROPHILS 4.7 1.7 - 7.0 thou/cu mm 11/23/2023 9:06 AM CDT [facility] ABSOLUTE LYMPHOCYTES 4.7(H) 0.9 - 2.9 thou/cu mm 11/23/2023 9:06 AM CDT [facility] ABSOLUTE MONOCYTES 1.1(H) <0.9 thou/cu mm 11/23/2023 9:06 AM CDT [facility] ABSOLUTE EOSINOPHILS 0.2 <0.5 thou/cu mm 11/23/2023 9:06 AM CDT [facility] ABSOLUTE BASOPHILS 0.0 <0.3 thou/cu mm 11/23/2023 9:06 AM CDT [facility] Blood BLOOD SPECIMEN / Unknown Venipuncture / Unknown 11/23/2023 9:01 AM CDT 11/23/2023 9:02 AM CDT Rayshawn Parish MD HEMATOLOGY [facility] [address] [place] [address], [place] [phone] * C-REACTIVE PROTEIN (11/23/2023 9:01 AM CDT) C-REACTIVE PROTEIN <0.3 <0.5 mg/dL 11/23/2023 6:42 PM CDT [facility] Blood BLOOD SPECIMEN / Unknown Venipuncture / Unknown 11/23/2023 9:01 AM CDT 11/23/2023 9:02 AM CDT Rayshawn Parish MD [facility] [address] [place] [address], [place] * (ABNORMAL) COMP METABOLIC PANEL (11/23/2023 9:01 AM CDT) SODIUM 130(L) 136 - 145 mmol/L 11/23/2023 6:40 PM CDT [facility] POTASSIUM 5.1 3.5 - 5.1 mmol/L 11/23/2023 6:40 PM T [facility] CHLORIDE 94(L) 98 - 107 mmol/L 11/23/2023 6:40 PM T [facility] CO2,TOTAL 21(L) 22 - 29 mmol/L 11/23/2023 6:40 PM T [facility] ANION GAP 15 5 - 18 11/23/2023 6:40 PM T [facility] GLUCOSE 94 70 - 99 mg/dL 11/23/2023 6:40 PM T [facility] CALCIUM 9.6 8.8 - 10.2 mg/dL 11/23/2023 6:40 PM [facility] BUN 22 8 - 23 mg/dL 11/23/2023 6:40 PM [facility] CREATININE 1.55(H) 0.50 - 0.90 mg/dL 11/23/2023 6:40 PM [facility] BUN/CREAT RATIO 14 10 - 20 6:40 PM [facility] eGFR 38(L) >90 mL/min/1.7 3m2 11/23/2023 6:40 PM T [facility] Comment:As of 2021, eG FR is calculated by the CKD-EPI creatinine equation without race adjustment. ??eGFR can be influenced by muscle mass, exercise, and diet. ??The reported eGFR is an estimation only and is only applicable if the renal function is stable. ALBUMIN 4.3 4.0 - 4.9 g/dL 11/23/2023 6:40 PM CDT [facility] PROTEIN,TOTAL 7.6 6.0 - 8.0 g/dL 11/23/2023 6:40 PM T [facility] BILIRUBIN,TOTAL 0.7 0.0 - 1.2 mg/dL 11/23/2023 6:40 PM CDT [facility] ALK PHOSPHATASE 39 35 - 104 IU/L 11/23/2023 6:40 PM CDT [facility] ALT (SGPT) 26 10 - 35 IU/L 11/23/2023 6:40 PM CDT [facility] AST (SGOT) 43(H) 10 - 35 IU/L 11/23/2023 6:40 PM CDT [facility] Blood BLOOD SPECIMEN / Unknown Venipuncture / Unknown 11/23/2023 9:01 AM CDT 11/23/2023 9:02 AM CDT Rayshawn Parish MD CHEMISTRY [facility] [address] [place] [address], [place] * COLONOSCOPY (10/07/2017 7:51 AM CDT) [...] reponse to care. [facility] and nursing notes for moderate sedation details. Total physician intraservice time was 25 minutes. Rayshawn Parish MD 10/07/2017 9:25:26 AM This report has been signed electronically. Note Initiated On: 10/07/2017 7:51 AM Procedure Code(s): --- Professional --- 33945, Colonoscopy, flexible; with biopsy, single or multiple Diagnosis Code(s): --- Professional --- K50.80, Crohn's disease of both small andlarge intestine without complications CPT copyright 2017 [employer]. All rights reserved. The codes documented in this report are preliminary and upon sample distributor reviewmay be revised to meet current compliance requirements. Scope In: 8:50:22 AM Scope Withdrawal Time 0 hours 17 minutes 7 seconds Scope Out: 9:12:05 AM Rayshawn Parish MD PROCEDURE ORD * (ABNORMAL) LIPID PANEL (02/21/2007 8:46 AM CDT) CHOLESTEROL,TOTAL 140 110 - 199 mg/dL [facility] TRIGLYCERIDES 167(H) <150 mg/dL [facility] HDL CHOLESTEROL 40(L) >40 mg/dL [facility] CHOL/HDL RATIO 3.50 <4.51 [facility] LDL CHOLESTEROL 67 <131 mg/dL [facility] PATIENT STATUS Fasting [facility] Blood specimen (specimen) BLOOD SPECIMEN / Unknown 02/21/2007 8:46 AM CDT 02/21/2007 8:40 AM CDT Omi Meléndez MD CHEMISTRY Performing Organization Address City/State/[place] Co de Phone Number [facility] [address] [place] [address] * SAIL FINISHER HAND THIN PREP PAP SCREEN IMAGED (11/18/2006 3:59 PM CDT) CYTOLOGY ??CYTOPATHOLOGY REPORT ??[facility] ?? Status: Final Report ? [id number] ?? CLINICAL INFORMATION ?LMP ? : 7/14/07 ?Previous Pap Date ? : 05/08/04 ?Previous PAP Dx ? : Negative for intraepithelial lesion or ?malignancy. ?Previous Range/bx date : None ?Previous Colposcopy/Bx: None ?Hormone Usage ? : None ?Menstrual Status ?: Regular Periods ?Appearance of Cervix ??: Not given ?Range/Bx done today ?: No ?HPV Request ? [...] 11/18/06 ?? ACCESSIONED: 11/18/06 ?? SIGNED: 11/24/06 [facility] Cervical (Cervical) 11/18/2006 3:59 PM CDT 11/18/2006 3:56 PM CDT Omi Meléndez MD PATHOLOGY/CYTOLO GY [facility] INTERNAL ZIP [address] [address] from Last 3 Months or Most Recently Relevant to Health Maintenance Care Teams Programmer Analyst Consultant Relationship Specialty Start Date End Date Varinder Mercedes MD PCP - General 02/17/09
--- OUTSIDE RECORDS SUMMARY | 2024-02-08 10:02 | XMS_ITS | Encounter Summary ---
Author Organization [employer] Address [address] [place] [address] Care Team Providers Care Carpet Layer Name Role Phone Varinder Mercedes MD Primary Care Provider +1- [phone] Reason for Visit * Reason Comments Medication Questions Entered automatical ly based on patient selection in [employer]. Encounter Details Date Type Department Care Team (Late st Contact Info) Description 11/10/2023 1:30 PM CDT E-Visit [facility] [address] [place] [address] Low Peña MD [address] [place] [address] Dx: Uncontrolled type 2 diabetes mellitus [...] st Contact Info) Description 04/02/2024 10:45 AM HUNTER Appointment [facility] [address] [place] [address] Low Peña MD [address] [place] [address] documented as of this encounter Visit Diagnoses Diagnosis Uncontrolled type 2 diabetes mellitus with hyperglycemia (HRC)- Primary documented in this encounter Care Teams Carpet Layer Relationship Specialty Start Date End Date Varinder Mercedes MD [address] [place] [address] PCP - General 09/26/23 documented as of this encounter
--- OUTSIDE RECORDS SUMMARY | 2024-02-08 10:02 | XMS_ITS | Clinical Summary ---
Author Organization [employer] Address [address] [place] [address] Care Team Providers Care Advertisement Compositor Name Role Phone Varinder Mercedes MD Primary Care Provider +1- [phone] Source Comments You are receiving this document as you are listed as the primary care provider,follow-up provider, or the patient has been referred to you for consultation.This is in compliance with the Medicare and[facility] Hospital[facility]id EHR Incentive Program,which states Providers who transition their patient to another setting of careor provider of care or refers their patient to another provider of care shouldprovide summary care record for each transition of care or referral. [employer] Allergies Active Allergy Reactions Criticality Noted Date [...] Team Description 11/10/2023 1:30 PM CDT E-Visit [facility] [address] [place] [address] Ted Cerda MD Dx: Uncontrolled [...] st Contact Info) Description 04/02/2024 10:45 AM BATTERY BUILDER Appointment [facility] [address] [place] [address] Ted Cerda MD [address] [place] [phone] Health Maintenance Due Date Last Done Comments [...] (HRC) ALBUMIN/CREAT RATIO Routine 03/21/2023 2:48 PM BATTERY BUILDER Uncontrolled type 2 diabetes mellitus with hyperglycemia (HRC) LDL CHOLESTEROL, DIRECT MEASURED Routine 03/21/2023 2:48 PM BATTERY BUILDER Uncontrolled type 2 diabetes mellitus with hyperglycemia (HRC) LIPID PANEL & DIRECT LDL (IF NEEDED) Routine 06/21/2022 10:34 AM BATTERY BUILDER Uncontrolled type 2 diabetes mellitus with hyperglycemia (HRC) from Last 3 Months or Most Recently Relevant to Health Maintenance Results * (ABNORMAL) BMP (09/26/2023 2:29 PM CDT) Sodium 140 136 - 145 mmol/L 09/26/2023 6:16 PM [facility] Potassium 4.6 3.5 - 5.1 mmol/L 09/26/2023 6:16 PM [facility] Chloride 105 98 - 109 mmol/L 09/26/2023 6:16 PM [facility] CO2 24 20 - 29 mmol/L 09/26/2023 6:16 PM [facility] Anion Gap 11 6 - 16 mmol/L 09/26/2023 6:16 PM [facility] Calcium 9.8 8.4 - 10.4 mg/dL 09/26/2023 6:16 PM [facility] BUN 19 7 - 26 mg/dL 09/26/2023 6:16 PM [facility] Creatinine 1.26(H) 0.55 - 1.02 mg/dL 09/26/2023 6:16 PM [facility] Glucose 147(H) 70 - 100 mg/dL 09/26/2023 6:16 PM [facility] Comment:The given reference range is for the fasting state. Non-fasting reference range for glucose is 70 - 180 mg/dL. GFR, Estimated 49(L) >60 mL/min/1.7 3m2 09/26/2023 6:16 PM [facility] Hours Fasting 12.0 8 - 12 Hours 09/26/2023 6:16 PM [facility] Blood Venipuncture / Unknown 09/26/2023 2:29 PM CDT 09/26/2023 2:34 PM CDT [facility] - 09/26/2023 6:16 PM CDT The National Kidney Disease Education Program suggests measuring Cystatin C in patients with eGFRcrea of 45 to 59 ml/min/1.73^2 who do not have other markers of kidney damage (i.e. elevated urine Albumin/Creatinine Ratio or a prior Cystatin C confirming the presence of chronic kidney disease). Ted Cerda MD LAB_1 Performing Organization Address [facility] Co de Phone Number [facility] [address] [place] [address] * (ABNORMAL) HgbA1c - Collect in Clinic (09/26/2023 1:39 PM CDT) [facility] Hemoglobin A1C (Rapid) 8.2(H) <=5.6 % 09/26/2023 1:58 PM CDT [facility] Performing Location Endo A BU 09/26/2023 1:58 PM CDT [facility] Estimated Average Glucose (Calc) 189 < 117 mg/dL 09/26/2023 1:58 PM T [facility] Comment:Estimated average gl ucose (eAG) converts A1c into glucose units (mg/dL) and estimates average glucose over the past approximately 3 months. The eAG reference interval (<117 mg/dL) corresponds to an A1c of <5.7%. Blood Capillary / Unknown 09/26/2023 1:39 PM CDT 09/26/2023 1:40 PM CDT [place] - 09/26/2023 1:58 PM CDT For [...] Ted Cerda MD LAB_1 Performing Organization Address [facility]/ZIP Co de Phone Number [facility] [address] [place] [address] * LDL Cholesterol, Direct Measured (03/21/2023 2:48 PM BATTERY BUILDER) LDL, Direct 95 <=130 mg/dL 03/21/2023 5:[address] [facility] Blood Venipuncture / Unknown 03/21/2023 2:48 PM BATTERY BUILDER 03/21/2023 3:05 PM BATTERY BUILDER Ted Cerda MD LAB_1 Performing Organization Address [facility] Co de Phone Number [facility] [address] [place] [address], [facility] [phone] * (ABNORMAL) Albumin/Creatinine Ratio,Random Urine (03/21/2023 2:48 PM BATTERY BUILDER) Albumin/Creati nine Ratio, Urine, Random 100(H) <30 mg/g 03/21/2023 5:[address] [facility] Albumin, Urine, Random 298.3 mg/L 03/21/2023 5:[address] [facility] Creatinine, Urine, Random 297 >20 mg/dL mg/dL 03/21/2023 5:[address] [facility] Urine Non-blood Collection / Unknown 03/21/2023 2:48 PM BATTERY BUILDER 03/21/2023 3:05 PM BATTERY BUILDER Ted Cerda MD LAB_1 Performing Organization Address [facility]/ZIP Co de Phone Number [facility] [address] [place] [address], [facility] [phone] * (ABNORMAL) Lipid Panel and Direct LDL (if needed) (06/21/2022 10:34 AM BATTERY BUILDER) Cholesterol 157 0 - 199 mg/dL 06/21/2022 5:[address] [facility] Triglyceride 152(H) <=149 mg/dL 06/21/2022 5:[address] [facility] HDL Cholesterol 49 >=40 mg/dL 3 5:[address] [facility] LDL, Calculated 78 <130 mg/dL 3 5:[address] [facility] Non HDL Chol, Calculated 108 <=159 mg/dL 06/21/2022 5:[address] [facility] Cholesterol/HDL Ratio 3.2 06/21/2022 5:[address] [facility] Blood Venipuncture / Unknown 06/21/2022 10:34 AM BATTERY BUILDER 06/21/2022 10:34 AM [facility] Ted Cerda MD LAB_1 [facility] [address] [place] [address], [facility] [phone] from Last 3 Months or Most Recently Relevant to Health Maintenance Care Teams Advertisement Compositor Relationship Specialty Start Date End Date Varinder Mercedes MD [address] [place] [address] PCP - General 09/26/23
== END 2024-02-07 15:41 | disposition home or self-care (01) ==
LOC: NFLDREF 02-08 10:00
PROVIDERS: PCP Internal Medicine; Referring Provider Internal Medicine; Visit Provider Internal Medicine Nephrology
DX: N18.9 Chronic kidney disease, unspecified (principal); E11.9 Type 2 diabetes mellitus without complications; K50.90 Crohn's disease, unspecified, without complications
CPT/HCPCS: 87086; 87186

== ENCOUNTER 2024-08-16 11:55 | Outpatient (CLI) | payer OTHER, SELFPAY | END 2024-08-16 11:56 | disposition home or self-care (01) | LOC: NFLDREF 08-19 07:57 | PROVIDERS: PCP Internal Medicine; Referring Provider Internal Medicine; Visit Provider Internal Medicine Nephrology | DX: E11.22 Type 2 diabetes mellitus with diabetic chronic kidney disease (principal); N18.2 Chronic kidney disease, stage 2 (mild); K50.90 Crohn's disease, unspecified, without complications; E78.5 Hyperlipidemia, unspecified; R82.90 Unspecified abnormal findings in urine | CPT/HCPCS: 80061; 80069; 82043; 82570; 82728; 83540; 83550; 83970; 84450; 84460; 84550; 86140; 87086 ==

== ENCOUNTER 2024-11-13 07:24 | Outpatient (CLI) | payer OTHER, SELFPAY | END 2024-11-13 07:25 | disposition home or self-care (01) | LOC: INJ CL 07:25 | PROVIDERS: PCP Internal Medicine; Visit Provider Family Medicine | DX: M54.16 Radiculopathy, lumbar region (principal); M51.369 Other intervertebral disc degeneration, lumbar region without mention of lumbar back pain or lower extremity pain | CPT/HCPCS: 62323; Q9966 ==

== ENCOUNTER 2025-01-29 09:21 | Outpatient (CLI) | payer OTHER, SELFPAY | END 2025-01-29 09:22 | disposition home or self-care (01) | LOC: NFLDREF 01-31 17:08 | PROVIDERS: PCP Internal Medicine; Referring Provider Internal Medicine; Visit Provider Internal Medicine Nephrology | DX: E11.22 Type 2 diabetes mellitus with diabetic chronic kidney disease (principal); I12.9 Hypertensive chronic kidney disease with stage 1 through stage 4 chronic kidney disease, or unspecified chronic kidney disease; N18.31 Chronic kidney disease, stage 3a | CPT/HCPCS: 80069; 82043; 82570; 82728; 83540; 83550; 83970; 84550; 87086 ==